=== PATIENT | male | born 1950 | race Caucasian/White ===

== ENCOUNTER 2017-05-23 11:31 | Emergency (ER) | payer MEDICARE ==
[~2017-05-23] VITALS: Ht 172.7 cm; Wt 81.6 kg
[~2017-05-23 11:31] MED LIST: AMOX-559 PO; AMOX500T10 PO; ASP325 PO; AUG500 PO; ESZ3PT PO; ESZO1TAB16 PO; LOR5 PO; NIT4 SL; PRAM0.2524 PO; PRAM0.7512 PO; PRO25 PO; VALA100062 PO
[2017-05-23] MEDS ORDERED: ASPIRIN 81 MG CHEW PO ONE (11:45)
--- NOTE | 2017-05-23 11:49 | EKG ---
FACILITY: [facility] - [place] PATIENT NAME: BHUMIKA FREEDMAN : [id number] MR: [id number] V: [id number] EXAM DATE: ORDERING PHYSICIAN: EDD EDOUARD TECHNOLOGIST: NEREIDA Rey Reason : CHEST PAIN Blood Pressure : / mmHG Vent. Rate : 057 BPM Atrial Rate : 057 BPM P-R Int : 174 ms QRS Dur : 084 ms QT Int : 414 ms P-R-T Axes : 061 040 052 degrees QTc Int : 402 ms Sinus bradycardia Septal infarct , age undetermined Abnormal ECG When compared with ECG of 25-OCT-2013 08:34, Septal infarct is now present Confirmed by SILVESTRE LARRY ([id number]) on 05/23/2017 2:57:52 PM Referred By: QUEENIE Confirmed By:SILVESTRE LARRY
--- NOTE | 2017-05-23 11:52 | ER Report ---
History and Physical Time Seen By MD: 11:38 Hx. of Stated Complaint: PT REPORTS THAT HE IS HAVING CHEST PAIN AND HAVING TROUBLE SWALLOWING. HAD "ALOT OF PROBLEMS WITH REFLUX". HPI/ROS CHIEF COMPLAINT: Chest Pain HISTORY OF PRESENT ILLNESS: Patient is a 66-year-old male who presents to ED with complaint of chest pain that started about 2 hours ago. He states that he was sitting in the chair at the dentist office when this occurred. He states that he felt slightly short of breath at the time. He denies any nausea. He denies any radiation of the pain into his jaws or arms. He states that he has no history of heart or lung issues. He states that he has had a history of trouble swallowing and some stomach issues but has not had any recent issues today. He describes the pain as a sharp pain that has now resolved just prior to his arrival here. He has not noted any cough or fever. He denies any abdominal pain. REVIEW OF SYSTEMS: Constitutional: No fever, no chills. Eyes: No discharge. ENT: No sore throat. Cardiovascular: See history of present illness. No palpitations. Respiratory: See history of present illness. No cough. Gastrointestinal: See history of present illness. No nausea or vomiting. Genitourinary: No hematuria. Musculoskeletal: No back pain. Skin: No rashes. Neurological: No headache. Allergies: Coded Allergies: No Known Drug Allergies (Verified , 05/23/17) Home Meds Active Scripts Eszopiclone (LUNESTA) 3 Mg Tablet, 1 TAB PO QDAY, #90 TAB 0 Refills Prov:CHUN ROJAS MD 03/17/17 Pramipexole Di-Hcl (MIRAPEX) 0.25 Mg Tablet, 1 TAB PO QHS, #90 TAB 1 Refill Prov:RODRICK ROMERO MD 12/27/16 Discontinued Reported Medications Valacyclovir Hcl (VALTREX) 1,000 Mg Tablet, 1000 MG PO 12/06/16 Reviewed Nurses Notes: Yes Old Medical Records Reviewed: Yes Hx Smoking: No Smoking Status: Never Smoker Hx Substance Use Disorder: Yes (COCAINE-LAST USED 6MONTSH AGO/ occ pot) Hx Alcohol Use: Yes (6 beers weekly) Constitutional Vital Sign - Last 24 Hours 05/23/17 05/23/17 05/23/17 05/23/17 11:34 11:45 11:45 12:00 Temp 98.9 Pulse 63 54 56 Resp 23 20 B/P (MAP) 159/94 122/77 (92) Pulse Ox 95 92 94 O2 Delivery Room Air Nasal Cannula O2 Flow Rate 2.0 2 05/23/17 05/23/17 05/23/17 05/23/17 12:00 12:15 12:24 12:30 Pulse 53 60 51 57 Resp 16 B/P (MAP) 122/77 (92) 107/69 (82) Pulse Ox 93 91 93 95 O2 Delivery Nasal Cannula O2 Flow Rate 2 Physical Exam General Appearance: The patient is alert, has no immediate need for airway protection and no signs of toxicity. Patient appears to be no acute distress. Eyes: Pupils equal and round no pallor or injection. ENT, Mouth: Mucous membranes are moist. Respiratory: There are no retractions, lungs are clear to auscultation. Cardiovascular: Regular rate and rhythm. Gastrointestinal: Abdomen is soft and non tender, no masses, bowel sounds normal. Skin: Warm and dry, no rashes. Musculoskeletal: Neck is supple non tender. Extremities are nontender, nonswollen and have full range of motion. DIFFERENTIAL DIAGNOSIS: After history and physical exam differential diagnosis was considered for chest pain including but not limited to myocardial ischemia, pericarditis pulmonary embolus, chest wall pain, pleural inflammation and pulmonary infectious causes. Medical Decision Making Data Points Result Diagram: 05/23/17 1150 05/23/17 1150 Laboratory Hematology Test 05/23/17 11:50 Red Blood Count 4.78 M/uL (4.00-5.60) Mean Corpuscular Volume 101.7 fL (80.0-96.0) Mean Corpuscular Hemoglobin 34.7 pg (26.0-33.0) Mean Corpuscular Hemoglobin Concent 34.1 g/dL (32.0-36.0) Red Cell Distribution Width 13.5 % (11.5-14.5) Mean Platelet Volume 8.0 fL (7.2-11.1) Neutrophils (%) (Auto) 66.4 % (39.4-72.5) Lymphocytes (%) (Auto) 17.2 % (17.6-49.6) Monocytes (%) (Auto) 12.3 % (4.1-12.4) Eosinophils (%) (Auto) 3.3 % (0.4-6.7) Basophils (%) (Auto) 0.8 % (0.3-1.4) Nucleated RBC Relative Count (auto) 0.1 /100WBC Neutrophils # (Auto) 4.0 K/uL (2.0-7.4) Lymphocytes # (Auto) 1.0 K/uL (1.3-3.6) Monocytes # (Auto) 0.7 K/uL (0.3-1.0) Eosinophils # (Auto) 0.2 K/uL (0.0-0.5) Basophils # (Auto) 0.0 K/uL (0.0-0.1) Nucleated RBC Absolute Count (auto) 0.00 K/uL Sodium Level 138 mmol/L (137-145) Potassium Level 4.4 mmol/L (3.5-5.0) Chloride Level 101 mmol/L (98-107) Carbon Dioxide Level 28 mmol/L (22-30) Blood Urea Nitrogen 14 mg/dl (9-21) Creatinine 0.90 mg/dl (0.66-1.25) Glomerular Filtration Rate Calc > 60.0 Random Glucose 82 mg/dl (75-110) Calcium Level 8.8 mg/dl (8.4-10.2) Total Bilirubin 1.0 mg/dl (0.2-1.3) Aspartate Amino Transf (AST/SGOT) 32 U/L (0-35) Alanine Aminotransferase (ALT/SGPT) 45 U/L (0-56) Alkaline Phosphatase 53 U/L (0-126) Troponin I < 0.012 ng/ml B-Type Natriuretic Peptide 70 pg/ml (0-100) Total Protein 6.7 gm/dl (6.3-8.2) Albumin 3.7 g/dl (3.5-5.0) Chemistry Test 05/23/17 11:50 White Blood Count 6.0 k/uL (4.5-11.0) Red Blood Count 4.78 M/uL (4.00-5.60) Hemoglobin 16.6 g/dL (14.0-18.0) Hematocrit 48.6 % (42.0-52.0) Mean Corpuscular Volume 101.7 fL (80.0-96.0) Mean Corpuscular Hemoglobin 34.7 pg (26.0-33.0) Mean Corpuscular Hemoglobin Concent 34.1 g/dL (32.0-36.0) Red Cell Distribution Width 13.5 % (11.5-14.5) Platelet Count 235 K/uL (150-450) Mean Platelet Volume 8.0 fL (7.2-11.1) Neutrophils (%) (Auto) 66.4 % (39.4-72.5) Lymphocytes (%) (Auto) 17.2 % (17.6-49.6) Monocytes (%) (Auto) 12.3 % (4.1-12.4) Eosinophils (%) (Auto) 3.3 % (0.4-6.7) Basophils (%) (Auto) 0.8 % (0.3-1.4) Nucleated RBC Relative Count (auto) 0.1 /100WBC Neutrophils # (Auto) 4.0 K/uL (2.0-7.4) Lymphocytes # (Auto) 1.0 K/uL (1.3-3.6) Monocytes # (Auto) 0.7 K/uL (0.3-1.0) Eosinophils # (Auto) 0.2 K/uL (0.0-0.5) Basophils # (Auto) 0.0 K/uL (0.0-0.1) Nucleated RBC Absolute Count (auto) 0.00 K/uL Glomerular Filtration Rate Calc > 60.0 Calcium Level 8.8 mg/dl (8.4-10.2) Total Bilirubin 1.0 mg/dl (0.2-1.3) Aspartate Amino Transf (AST/SGOT) 32 U/L (0-35) Alanine Aminotransferase (ALT/SGPT) 45 U/L (0-56) Alkaline Phosphatase 53 U/L (0-126) Troponin I < 0.012 ng/ml B-Type Natriuretic Peptide 70 pg/ml (0-100) Total Protein 6.7 gm/dl (6.3-8.2) Albumin 3.7 g/dl (3.5-5.0) EKG/Imaging EKG Interpretation 12 lead EKG: Rhythm: Sinus bradycardia, rate 57 bpm [place]: normal QRS: normal ST segments: No acute ST changes identified. There is slight T-wave inversion in V2. Monitor Interpretation: Normal Sinus Rhythm Imaging CXR: IMPRESSION: 1. Hypoventilatory changes from a limited inspiratory effort Mild bibasilar scarring similar to the prior study Report Dictated By: Anay Wesley MD at 05/23/2017 12:27 PM Report E-Signed By: Anay Wesley MD at 05/23/2017 12:28 PM ED Course/Re-evaluation ED Course Will obtain EKG, chest x-ray, labs. Patient will be given 324 mg aspirin by mouth. 05/23/2017 1:00:22 pm - chest all labs, EKG, chest x-ray with patient. Everything appears to be essentially normal. He has been pain-free through his entire ER visit here. Advised him to follow-up with primary care provider regarding his chest pain. Decision to Disposition Date: May 23, 2017 Decision to Disposition Time: 13:00 Depart Departure Latest Vital Signs Vital Signs Date Time Temp Pulse Resp B/P (MAP) Pulse Ox O2 Delivery O2 Flow Rate FiO2 05/23/17 12:30 57 107/69 (82) 95 05/23/17 12:24 16 Nasal Cannula 2 05/23/17 11:34 98.9 Impression: Primary Impression: Chest pain Condition: Improved Disposition: HOME OR SELF-CARE Referrals: TORI SUE MD Patient Instructions: Chest Pain (ED) Additional Instructions: Stay well-hydrated. Follow-up with primary care provider in 1-2 days. If having worsening or concerning symptoms return the Emergency Department. Problem Qualifiers Primary Impression: Chest pain Chest pain type: unspecified Qualified Codes: R07.9 - Chest pain, unspecified EDD EDOUARD PA-C May 23, 2017 11:52
[2017-05-23 12:03] LABS: PLATELET COUNT, AUTOMATED 235 K/uL (150-450)
--- NOTE | 2017-05-23 12:34 | RADIOLOGY IMAGING REPORT ---
FACILITY: [facility] - [place] PATIENT NAME: Cristiano Snow : 1950 MR: [id number] V: [id number] EXAM DATE: ORDERING PHYSICIAN: EDD EDOUARD TECHNOLOGIST: Location: [facility] Patient: Cristiano Snow : 1950 Visit/Account:[id number] Date of Sevice: 05/23/2017 Exam type: CHEST SINGLE AP History: Chest Pain Comparison: March 19, 2014. Findings: There are hypoventilatory changes from a limited inspiratory effort. There is a small amount of by b asilar scarring that appears similar to the prior study. No acute appearing infiltrates are seen. T here is no evidence of a pneumothorax or pneumomediastinum. The cardiac silhouette is normal in size . IMPRESSION: 1. Hypoventilatory changes from a limited inspiratory effort Mild bibasilar scarring similar to the prior study Report Dictated By: Anay Wesley MD at 05/23/2017 12:27 PM Report E-Signed By: Anay Wesley MD at 05/23/2017 12:28 PM WSN:[email or web address]
[2017-05-23 13:00] VITALS: BP 111/66
== END 2017-05-23 13:10 | disposition home or self-care (01) ==
LOC: ER 11:35
DX: R07.89 Other chest pain (principal); R06.02 Shortness of breath
CPT/HCPCS: 71045; 83880; 84484; 85025; 93005; 99284; A9270; 82040; 82247; 82310; 82374; 82435; 82565; 82947; 84075; 84132; 84155; 84295; 84450; 84460; 84520

== ENCOUNTER → 2018-08-02 | Outpatient (CLI) | payer MEDICARE ==
[~2018-08-02] MED LIST changes: +PANT40TA65 PO; +PNEU0.5D3 IM
== END ==
LOC: RESP 01:37
PROVIDERS: ATTEND Internal Medicine
DX: J98.4 Other disorders of lung (principal)
CPT/HCPCS: 94060; 94726; 94729